=== PATIENT | male | born 1985 | race Asian ===

== ENCOUNTER 2019-05-12 17:52 | Emergency (ER) | payer SELFPAY ==
[~2019-05-12] VITALS: Ht 167.6 cm; Wt 60.4 kg
--- NOTE | 2019-05-12 18:22 | NUR ---
PATIENT PRESENTS TO ED TODAY FOR LLQ ABD PAIN AND NAUSEA X 1 HOUR. DENIES DIARRHEA. DENIES MEDICAL HX. NADN. AWAITING MD ORDERS, CALL LIGHT WITHIN REACH.
--- NOTE | 2019-05-12 18:32 | NUR ---
PATIENT TO CT VIA [facility].
[2019-05-12 18:33] LABS: BASOPHILS # (AUTO) 0.01 x10^3/uL (0-0.1); BASOPHILS % (AUTO) 0 % (0-1); EOSINOPHILS % (AUTO) 0 % (1-7); LYMPHOCYTES # (AUTO) 0.97 x10^3/uL (1-3.4); LYMPHOCYTES % (AUTO) 7 % (22-44); MD NO; MEAN CORPUSCULAR HEMOGLOBIN 26.7 pg (27.5-34.5); MEAN CORPUSCULAR HGB CONC 32.8 g/dL (33.2-36.2); MEAN CORPUSCULAR VOLUME 81.4 fL (81-97); MEAN PLATELET VOLUME 7.2 fL (7.4-10.4); MONOCYTES # (AUTO) 0.36 x10^3/uL (0.2-0.8); MONOCYTES % (AUTO) 2 % (2-9); NEUTROPHILS # (AUTO) 13.58 x10^3/uL (1.8-6.8); NEUTROPHILS % (AUTO) 91 % (42-75); PLATELET COUNT 265 x10^3/uL (130-400); RED BLOOD COUNT 6.28 x10^6/uL (4.38-5.82); RED CELL DISTRIBUTION WIDTH 13.7 % (9.4-14.8)
[2019-05-12 18:45] LABS: ALBUMIN 4.4 g/dL (3.4-5.0); ANION GAP 9 mmol/L (5-15); CHLORIDE 107 mmol/L (98-107); CREATININE 1.04 mg/dL (0.7-1.3)
--- NOTE | 2019-05-12 18:51 | NUR ---
UA COLLECTED AND SENT TO LAB.
[2019-05-12 18:54] LABS: ALANINE AMINOTRANSFERASE 37 U/L (12-78); ALKALINE PHOSPHATASE 97 U/L (45-117); BILIRUBIN,TOTAL 0.4 mg/dL (0.2-1.0); TOTAL PROTEIN 8.4 g/dL (6.4-8.2)
[2019-05-12 19:02] LABS: MICROSCOPIC AUTO
[2019-05-12 19:05] LABS: CULTURE INDICATED? NO
[2019-05-12] MEDS ORDERED: PROPOFOL 10 MG/ML, 20ML ONE (19:17)
[2019-05-12] MEDS ORDERED: PROPOFOL 10 MG/ML, 20ML IVPush ONE (20:00)
--- NOTE | 2019-05-12 20:15 | NUR ---
RESULTS BACK, PER MD/CT, FOREIGN OBJECT IN RECTUM, CONSENT FORM SIGNED TO REMOVE FOREIGN OBJECT, CONSCIOUS SEDATION PERFORMED BY ERP, WHO FORM COMPLETED AND PLACED IN CHART WITH PRINTED VS SHEET. PROCEDURE START TIME 2002, STOP TIME 2009, PATIENT AWAKE AT 2011. PATIENT A+OX4 AT THIS TIME. SUPERVISOR THROWING DEPARTMENT ON PATIENT, WILL CONTINUE TO MONITOR VS/PATIENT POST CONSCIOUS SEDATION. VS UPDATED IN CHART, PATIENT DENIES PAIN AT THIS TIME. AWAITING ERP TO CONSULT GI, AWAITING FURTHER ORDERS, NO ADDITIONAL NEEDS AT THIS TIME.
--- NOTE | 2019-05-12 20:20 | NUR ---
NEW ORDERS, PATIENT TO XRAY VIA Nick [facility].
--- NOTE | 2019-05-12 20:37 | NUR ---
PATIENT SITTING IN [facility], A+OX4. TO BE DC'D PER ERP AFTER SPEAKING WITH GI. PATIENT INSTRUCTED/EDUCATED S/S TO RETURN TO ED. AWAITING FURTHER ORDERS. CALL LIGHT WITHINR EACH, [facility]. VS UPDATED IN CHART.
--- NOTE | 2019-05-12 20:58 | NUR ---
VSS and updated in chart, patient/Caregiver given discharge instructions and they have confirmed that they understand the instructions. Patient ambulatory with steady gait. Patient to take uber home for safe DC.
[2019-05-12 20:59] VITALS: BP 109/64
== END 2019-05-12 21:01 | disposition home or self-care (01) ==
LOC: ED 18:21
DX: T18.5XXA Foreign body in anus and rectum, initial encounter (principal); X58.XXXA Exposure to other specified factors, initial encounter; Y93.89 Activity, other specified; Y92.89 Other specified places as the place of occurrence of the external cause; Y99.8 Other external cause status
CPT/HCPCS: 36415; 74018; 74176; 80053; 81001; 83690; 85025; 99285; J2704